=== PATIENT | female | born 1955 | race Caucasian/White ===

== ENCOUNTER 2017-10-21 14:57 | Emergency (ER) | payer BC ==
--- NOTE | 2017-10-21 15:52 | ER Document Report ---
ED Medical Screen (RME) - General Chief Complaint: Cough Stated Complaint: COUGH,CONGESTION,DIZZY Time Seen by Provider: 10/21/17 15:50 Notes: Patient diagnosed 1 week ago with pneumonia by Dr. Bledsoe. Patient has taken 7 days of Levaquin but does not feel better. She still has fevers fatigue chest pain and coughing. TRAVEL OUTSIDE OF THE [place] IN LAST 30 DAYS: No - Related Data Allergies/Adverse Reactions: codeine [Codeine] Allergy (Severe, Verified 10/21/17 14:58) Facial swelling honey [Honey] Allergy (Severe, Verified 10/21/17 14:58) THROAT SWELLING Past Medical History - Social History Frequency of alcohol use: None Drug Abuse: None - Past Medical History Cardiac Medical History: Denies: Hx Coronary Artery Disease, Hx Heart Attack, Hx Hypertension Pulmonary Medical History: Reports: Hx Bronchitis - IN PAST Denies: Hx Asthma, Hx COPD, Hx Pneumonia Neurological Medical History: Denies: Hx Cerebrovascular Accident, Hx Seizures Renal/ Medical History: Denies: Hx Peritoneal Dialysis Musculoskeltal Medical History: Denies Hx Arthritis Past Surgical History: Denies: Hx Hysterectomy - Immunizations Hx Diphtheria, Pertussis, Tetanus Vaccination: Yes Physical Exam - Vital signs Vitals: Temp Pulse Resp BP Pulse Ox 98.2 F 86 18 135/89 H 98 10/21/17 15:15 10/21/17 15:15 10/21/17 15:15 10/21/17 15:15 10/21/17 15:15 Course - Vital Signs Vital signs: Temp Pulse Resp BP Pulse Ox 98.2 F 86 18 135/89 H 98 10/21/17 15:15 10/21/17 15:15 10/21/17 15:15 10/21/17 15:15 10/21/17 15:15
--- NOTE | 2017-10-21 16:25 | RADIOLOGY REPORT (SQ) ---
EXAM DESCRIPTION: CHEST PA/LAT COMPLETED DATE/TIME: 10/21/2017 4:16 pm REASON FOR STUDY: pain COMPARISON: None. EXAM PARAMETERS: NUMBER OF VIEWS: two views TECHNIQUE: Digital Frontal and Lateral radiographic views of the chest acquired. RADIATION DOSE: NA LIMITATIONS: none FINDINGS: LUNGS AND PLEURA: Small focus of airspace disease just above the left hemidiaphragm in the lingula. Lungs are otherwise well inflated and clear. No pleural effusion. No pneumothorax. MEDIASTINUM AND HILAR STRUCTURES: No masses or contour abnormalities. HEART AND VASCULAR STRUCTURES: Heart normal size. No evidence for failure. BONES: No acute findings. HARDWARE: None in the chest. OTHER: No other significant finding. IMPRESSION: Small focus of airspace disease just above the left hemidiaphragm in the lingula. TECHNICAL DOCUMENTATION: JOB ID: [id number] [employer]- All Rights Reserved
[2017-10-21 16:37] LABS: ABSOLUTE LYMPHOCYTES (AUTO) 1.7 10^3/uL (0.5-4.7); ABSOLUTE MONOCYTES (AUTO) 0.4 10^3/uL (0.1-1.4); ABSOLUTE NEUT (AUTO) 2.3 10^3/uL (1.7-8.2); BASOPHILS % (AUTO) 0.4 % (0-2); EOSINOPHILS % (AUTO) 0.9 % (0-6); HEMATOCRIT 41.1 % (36.0-47.0); HEMOGLOBIN 14.3 g/dL (12.0-15.5); LYMPHOCYTES % (AUTO) 38.6 % (13-45); MEAN CORPUSCULAR HEMOGLOBIN 30.2 pg (27.0-33.4); MEAN CORPUSCULAR HGB CONC 34.8 g/dL (32.0-36.0); MEAN CORPUSCULAR VOLUME 87 fl (80-97); MONOCYTES % (AUTO) 8.4 % (3-13); PLATELET COUNT 192 10^3/uL (150-450); RED BLOOD COUNT 4.73 10^6/uL (3.72-5.28); RED CELL DISTRIBUTION WIDTH 12.7 % (11.5-14.0); SEGMENTED NEUTROPHILS % (AUTO) 51.7 % (42-78); TOTAL CELLS COUNTED % (AUTO) 100 %; WHITE BLOOD COUNT 4.4 10^3/uL (4.0-10.5)
[2017-10-21 16:55] LABS: ALANINE AMINOTRANSFERASE 34 U/L (9-52); ALBUMIN 4.6 g/dL (3.5-5.0); ALKALINE PHOSPHATASE 36 U/L (38-126); ANION GAP 9 (5-19); ASPARTATE AMINO TRANSFERASE 22 U/L (14-36); BILIRUBIN,TOTAL 0.3 mg/dL (0.2-1.3); BLOOD UREA NITROGEN 12 mg/dL (7-20); CALCIUM 9.7 mg/dL (8.4-10.2); CARBON DIOXIDE 31 mmol/L (22-30); CHLORIDE 103 mmol/L (98-107); GLUCOSE 94 mg/dL (75-110); POTASSIUM 4.5 mmol/L (3.6-5.0); TOTAL PROTEIN 7.2 g/dL (6.3-8.2)
--- NOTE | 2017-10-21 18:05 | ER Document Report ---
ED Respiratory Problem - General Chief Complaint: Cough Stated Complaint: COUGH,CONGESTION,DIZZY Time Seen by Provider: 10/21/17 15:50 Notes: Patient says she was diagnosed with pneumonia about 1 week ago. She filled a prescription for Levaquin last Saturday and says she has 2 or 3 pills left in the bottle. She is complaining of pain in the left side of her chest and rib cage. She is also feeling some dizziness. Still noted a fever of 101 earlier today. Nauseated but not vomiting. Says she is feeling better overall than when she first got sick. She was seen by her primary care provider who sent her here for a chest x-ray and some lab work today. Patient says she continues to have a cough with some congestion but no blood present. PMH: Hypothyroid. TRAVEL OUTSIDE OF THE [place] IN LAST 30 DAYS: No - Related Data Allergies/Adverse Reactions: codeine [Codeine] Allergy (Severe, Verified 10/21/17 14:58) Facial swelling honey [Honey] Allergy (Severe, Verified 10/21/17 14:58) THROAT SWELLING Past Medical History - Social History Smoking Status: Never Smoker Frequency of alcohol use: None Drug Abuse: None Family History: Reviewed & Not Pertinent Patient has suicidal ideation: No Patient has homicidal ideation: No Pulmonary Medical History: Reports: Hx Bronchitis - IN PAST Endocrine Medical History: Reports: Hx Hypothyroidism - Immunizations Hx Diphtheria, Pertussis, Tetanus Vaccination: Yes Review of Systems - Review of Systems Notes: CONSTITUTIONAL : Denies fever. CARDIOVASCULAR: See HPI. RESPIRATORY: See HPI. GASTROINTESTINAL: Denies abdominal pain or vomiting, or diarrhea. Some nausea. GENITOURINARY: Denies difficulty or painful urinating, urinary frequency, blood in urine. Physical Exam - Vital signs Vitals: Temp Pulse Resp BP Pulse Ox 98.2 F 86 18 135/89 H 98 10/21/17 15:15 10/21/17 15:15 10/21/17 15:15 10/21/17 15:15 10/21/17 15:15 Interpretation: Normal - Notes Notes: PHYSICAL EXAMINATION: GENERAL: Well-appearing, in no acute distress. HEAD: Atraumatic, normocephalic. NECK: Normal range of motion, supple. LUNGS: Breath sounds clear and equal bilaterally. No wheezes, rales, or rhonchi heard. HEART: Regular rate and rhythm without murmurs. ABDOMEN: Soft, nontender. No guarding or rebound. No masses. BACK: No tenderness throughout entire back. EXTREMITIES: Normal range of motion without pain. Negative Homans bilaterally. NEUROLOGICAL: Normal speech, normal gait. Normal sensory, motor, and reflex exams. Awake, alert, and oriented x3. Cranial nerves normal. PSYCH: Normal mood, normal affect. SKIN: Warm, dry, no rashes. Course - Vital Signs Vital signs: Temp Pulse Resp BP Pulse Ox 98.4 F 92 19 145/86 H 98 10/21/17 18:09 10/21/17 18:09 10/21/17 18:09 10/21/17 18:09 10/21/17 18:09 - Laboratory Result Diagrams: 10/21/17 16:27 10/21/17 16:27 Laboratory results interpreted by me: 10/21/17 16:27 Carbon Dioxide 31 H Alkaline Phosphatase 36 L - Diagnostic Test Radiology results interpreted by mn: 10/21/17 19:56 Chest x-ray shows very faint hazy small area in the left base which radiologist interpreted as airspace disease. It does happen to be where the patient is still experiencing some chest pain and could be some pleuritic involvement. There are no findings or history that concerns me for a pulmonary embolus. Patient's white count is normal. She is afebrile here. I do not think it is advisable or necessary to change her antibiotics. I have advised her to continue taking her Levaquin until it is finished and follow-up with her primary care provider later in the week if she is not doing any better. Discharge - Discharge Clinical Impression: Pneumonia Condition: Stable Disposition: HOME, SELF-CARE Additional Instructions: PNEUMONIA: Your examination indicates that you have pneumonia. This is an infection of the lung tissue, usually caused by bacteria or a virus. Symptoms include cough, fever, shaking chills, chest pain, shortness of breath, and coughing up bloody sputum. Treatment for bacterial pneumonia includes rest, antibiotics for 10 to 14 days, increasing your clear liquid intake, a cool mist humidifier at your bedside, and fever medication. Often, a repeat chest X-ray is performed in a few weeks--even if you feel better--to ascertain whether the infection has completely resolved and no underlying lung problem is present. You should call the physician if you develop persistent vomiting, high fever that does not respond to fever medication, increasing shortness of breath , confusion, or lethargy. Also, failure to improve within two to three days is an indication for re-examination. Your lab work looks fine and all normal. Your chest x-ray shows a very minimal amount of residual pneumonia in the left base. Continue to take your current medication, Levaquin, until it is finished. LEVOFLOXACIN: You have been given an antibacterial agent, levofloxacin (Levaquin). This medicine is not related to the penicillins, sulfas, cephalosporins, or tetracyclines. It is often given to patients who are allergic to these drugs. It has been chosen for you either because other drugs are not appropriate, or because of the nature of your problem. Levaquin should not be taken with antacids, as these can decrease its effectiveness. It can be taken without regard to meals. LEVAQUIN SHOULD NOT BE TAKEN BY CHILDREN, NURSING WOMEN, OR WOMEN. Although Levaquin is usually well-tolerated, common side effects can include nausea and diarrhea. Contact your doctor if you experience any unusual symptoms while on this medication, such as joint pain or swelling, shortness of breath, wheezing, faintness, or hives. USE OF ACETAMINOPHEN (Tylenol): Acetaminophen may be taken for pain relief or fever control. It's much safer than aspirin, offering a wider range of "safe" dosages. It is safe during . Some brand names are Tylenol, Panadol, Datril, Anacin 3, Tempra, and Liquiprin. Acetaminophen can be repeated every four hours. The following are maximum recommended dosages: WEIGHT Dose Drops Elixir Chewable( 80mg) (LBS.) drprs=droppers tsp=teaspoon >89 pounds or adults 650 mg to 900 mg Acetaminophen can be repeated every four hours. Maximum dose not to exceed 4000 mg a day. These maximum recommended dosages are slightly higher than the dosages written on the product container, but these dosages are very safe and below the toxic dosage for acetaminophen. FOLLOW-UP CARE: If you have been referred to a physician for follow-up care, call the physician s office for an appointment as you were instructed or within the next two days. If you experience worsening or a significant change in your symptoms, notify the physician immediately or return to the Emergency Department at any time for re-evaluation. Forms: Return to Work Referrals: KATERYNA GAMBINO MD [Primary Care Provider] - Follow up as needed
[2017-10-21 18:13] VITALS: BP 145/86
--- NOTE | 2017-10-21 22:37 | EKG REPORT ---
SEVERITY:- BORDERLINE ECG - SINUS RHYTHM BORDERLINE T ABNORMALITIES, ANTERIOR LEADS : Confirmed by: Miryam Jordan 21-Oct-2017 22:37:19
== END 2017-10-21 18:15 | disposition home or self-care (01) ==
LOC: ER 14:57
DX: J18.9 Pneumonia, unspecified organism (principal); R05 Cough; R09.81 Nasal congestion; R42 Dizziness and giddiness; R50.9 Fever, unspecified; R11.0 Nausea; Z79.899 Other long term (current) drug therapy
CPT/HCPCS: 36415; 71046; 80053; 85025; 93005; 93010; 99284